=== PATIENT | female | born 1995 | race American Indian/Alaskan Native ===

== ENCOUNTER 2021-03-26 19:24 | Emergency (ER) | payer MEDICAID ==
[2021-03-26] MEDS ORDERED: Ibuprofen 400 MG Tab PO ONE (19:58)
--- NOTE | 2021-03-26 20:02 | EDM.PDOC ---
ED HPI GENERAL MEDICAL PROBLEM - General Chief Complaint: General Stated Complaint: HIT HEAD ON PORCH BEAM, DOES NOT FEEL RIGHT Time Seen by Provider: 03/26/21 19:45 Source of Information: Reports: Patient, RN, RN Notes Reviewed History Limitations: Reports: No Limitations - History of Present Illness INITIAL COMMENTS - FREE TEXT/NARRATIVE: Faina is a 25 y/o female who presents to the ED via personal vehicle with complaints of head pain. The patient reports two days ago she was running from a dog, jumped onto her porch and struck the top of her head on a wooden railing. She denies loss of consciousness during the event, daily blood thinner use, and blood dyscrasias. She notes transient vision changes (especially with depth perception), increased sleepiness, and nausea. She denies cervical point tenderness, neck pain with flexion/extension/lateral rotation, projectile vomiting, pupillary changes, or seizure-like activity. She denies history of head trauma. She has taken no medications or performed supportive cares for her symptoms. Head Pain Score (Numeric/FACES): 1 - Related Data Allergies Allergy/AdvReac Type Severity Reaction Status Date / Time clarithromycin [From Biaxin] Allergy Rash Verified 03/26/21 19:43 Social & Family History - Tobacco Use Tobacco Use Status *Q: Never Tobacco User Second Hand Smoke Exposure: No - Caffeine Use Caffeine Use: Reports: Coffee, Tea - Recreational Drug Use Recreational Drug Use: No ED ROS GENERAL - Review of Systems Review Of Systems: Comprehensive ROS is negative, except as noted in HPI. ED EXAM, GENERAL - Physical Exam Exam: See Below Exam Limited By: No Limitations General Appearance: Alert, No Apparent Distress Eye Exam: Bilateral Eye: EOMI, Nystagmus (Lateral gaze), PERRL (3mm) Ears: Normal External Exam, Normal Canal, Hearing Grossly Normal, Normal TMs Ear Exam: Bilateral Ear: Auricle Normal, Canal Normal, TM normal Nose: Normal Inspection, Normal Mucosa, No Blood Throat/Mouth: Normal Inspection, Normal Lips, Normal Teeth, Normal Gums, Normal Oropharynx, Normal Voice, No Airway Compromise Head: Normocephalic, Facial Tenderness (Small superficial abrasion to right inferior periorbit). No: Atraumatic (Small contusion to right superior parietal lobe; No ecchymosis of laceration) Neck: Normal Inspection, Supple, Non-Tender, Full Range of Motion. No: Tender Lateral, Tender Midline Respiratory/Chest: No Respiratory Distress, Lungs Clear, Normal Breath Sounds, No Accessory Muscle Use, Chest Non-Tender Cardiovascular: Normal Peripheral Pulses, Regular Rate, Rhythm, No Gallop, No Murmur, No Rub Peripheral Pulses: 2+: Radial (L), Radial (R) GI/Abdominal: Normal Bowel Sounds, Soft, Non-Tender (Female) Exam: Deferred Rectal (Female) Exam: Deferred Back Exam: Normal Inspection, Full Range of Motion. No: Paraspinal Tenderness, Vertebral Tenderness Extremities: Normal Inspection, Normal Range of Motion Neurological: Alert, Oriented, CN II-XII Intact, Normal Cognition, Normal Gait, Normal Reflexes, No Motor/Sensory Deficits. No: Slow to Respond, Memory Loss Remote Events, Memory Loss Recent Events Psychiatric: Normal Affect, Normal Mood Skin Exam: Warm, Dry, Normal Color, No Rash, Wound/Incision (See above). No: Cyanosis, Ecchymosis, Erythema, Jaundice, Mottled, Pallor, Petechiae Course - Vital Signs Last Recorded V/S: Last Vital Signs Temp 98.7 F 03/26/21 19:42 Pulse 66 03/26/21 19:42 Resp 16 03/26/21 19:42 BP 128/86 03/26/21 19:42 Pulse Ox 98 03/26/21 19:42 - Orders/Labs/Meds Meds: Medications Discontinued Medications Generic Name Dose Route Start Last Admin Trade Name Freq PRN Reason Stop Dose Admin Ibuprofen 400 mg 03/26/21 19:58 03/26/21 20:02 Ibuprofen 400 Mg Tab PO 03/26/21 19:59 400 mg ONETIME ONE Administration - Re-Assessments/Exams Free Text/Narrative Re-Assessment/Exam: 03/26/21 Findings of examination reviewed with patient. Supportive cares and monitoring for concussion discussed. Patient instructed to follow up with PCP regarding today's visit. Red flag signs and symptoms which would warrant immediate reevaluation reviewed. Patient verbalized understanding and agreement with the plan of care. Departure - Departure Time of Disposition: 20:10 Disposition: Home, Self-Care 01 Condition: Good Clinical Impression: Fall from ground level Concussion Qualifiers: Encounter type: initial encounter Loss of consciousness presence/duration: without LOC Qualified Code(s): S06.0X0A - Concussion without loss of consciousness, initial encounter Head contusion Qualifiers: Encounter type: initial encounter Contusion of head detail: scalp Qualified Code(s): S00.03XA - Contusion of scalp, initial encounter - Discharge Information *PRESCRIPTION DRUG MONITORING PROGRAM REVIEWED*: Not Applicable *COPY OF PRESCRIPTION DRUG MONITORING REPORT IN PATIENT INOCENTE: Not Applicable Instructions: Head Injury, Adult, Concussion, Adult Forms: ED Department Discharge Additional Instructions: 1.) You may take ibuprofen (Motrin/Advil) 400mg every six hours, as pain and swelling persist. You may also take acetaminophen (Tylenol) 650mg every six hours, as pain persists. You may stagger these medications so you are taking a dose every three hours. 2.) You may apply ice to the affected areas, as pain persists; 20 minutes, every hour. 3.) Follow up with your primary care provider regarding today's visit, or return to the emergency department, should symptoms worsen or persist for 10-14 days. Sepsis Event Note (ED) - Evaluation Sepsis Screening Result: No Definite Risk - Focused Exam Vital Signs: Vital Signs Temp Pulse Resp BP Pulse Ox 03/26/21 19:42 98.7 F 66 16 128/86 98
== END 2021-03-26 20:10 | disposition home or self-care (01) ==
LOC: DL.ED 19:24
DX: S06.0X0A Concussion without loss of consciousness, initial encounter (principal); S00.03XA Contusion of scalp, initial encounter; S00.211A Abrasion of right eyelid and periocular area, initial encounter; Z88.1 Allergy status to other antibiotic agents; W22.09XA Striking against other stationary object, initial encounter; Y93.02 Activity, running
CPT/HCPCS: 99283; A9270